=== PATIENT | male | born 1965 | race Caucasian/White ===

== ENCOUNTER 2022-03-18 09:02 | Day surgery (SDC) | payer MEDICAID ==
[~2022-03-18] VITALS: Ht 188 cm; Wt 79.5 kg
[2022-03-18] MEDS ORDERED: fentaNYL/PF 50MCG/1 ML 2ML syringe ONE (09:07)
[2022-03-18] MEDS ORDERED: MIDAZolam 1 MG/ML 5ML VIAL ONE (09:07)
[2022-03-18] MEDS ORDERED: LIDOcaine Viscous 15ml cup ONE (09:08)
[2022-03-18 09:13] VITALS: BP 150/105
[2022-03-18] MEDS ORDERED: MULT-1085 PO (09:34)
[2022-03-18 11:43] VITALS: BP 129/85
[2022-03-18 11:53] VITALS: BP 122/81
[2022-03-18 12:03] VITALS: BP 122/83
[2022-03-18 12:13] VITALS: BP 123/82
== END 2022-03-18 12:20 | disposition home or self-care (01) ==
LOC: GI LAB 09:02
PROVIDERS: ATTEND Internal Medicine Gastroenterology
DX: K31.7 Polyp of stomach and duodenum (principal); K20.90 Esophagitis, unspecified without bleeding; K29.50 Unspecified chronic gastritis without bleeding; K74.60 Unspecified cirrhosis of liver; Z79.899 Other long term (current) drug therapy; Z98.890 Other specified postprocedural states
CPT/HCPCS: 43239; 43251; 99152; C1773; J2250; J3010; J7030; Z7512; A4620